=== PATIENT | female | born 1945 | race African-American/Black ===

== ENCOUNTER 2018-05-11 10:07 | Emergency (ER) | payer MEDICARE, MEDICAID ==
[~2018-05-11] VITALS: Ht 165.1 cm; Wt 51.0 kg
[2018-05-11] MEDS ORDERED: MORPHINE SULFATE 10 MG/ML CPJ IM ONE (10:45)
[2018-05-11] MEDS ORDERED: ONDANSETRON 4MG ODT PO ONE (10:45)
[2018-05-11 12:20] VITALS: BP 128/82
== END 2018-05-11 13:19 | disposition home or self-care (01) ==
LOC: ER 12:05
DX: M54.40 Lumbago with sciatica, unspecified side (principal); J44.9 Chronic obstructive pulmonary disease, unspecified; E11.9 Type 2 diabetes mellitus without complications; I10 Essential (primary) hypertension
CPT/HCPCS: 72100; 93971; 96372; 99284; J2270; Q0162